=== PATIENT | male | born 1960 | race Caucasian/White ===

== ENCOUNTER 2020-04-10 10:22 | Inpatient (IN) | payer BC ==
[~2020-04-10] VITALS: Ht 190.5 cm; Wt 84.8 kg
[2020-04-10 11:41] LABS: BASOPHILS % (AUTO) 0.2 % (0-1); EOSINOPHILS # (AUTO) 0.7 X10'3 (0-0.9); EOSINOPHILS % (AUTO) 8.3 % (0-6); HEMATOCRIT 26.5 % (42.0-52.0); LYMPHOCYTES # (AUTO) 0.8 X10'3 (1.1-4.8); LYMPHOCYTES % (AUTO) 9.4 % (21-51); MEAN CORPUSCULAR HEMOGLOBIN 31.6 PG (27.0-31.0); MEAN CORPUSCULAR HGB CONC 34.1 g/dL (33.0-36.5); MEAN CORPUSCULAR VOLUME 92.8 FL (78-98); MEAN PLATELET VOLUME 7.3 FL (7.4-10.4); MONOCYTES # (AUTO) 1.1 X10'3 (0-0.9); MONOCYTES % (AUTO) 12.4 % (2-12); NEUTROPHILS # (AUTO) 5.9 X10'3 (1.8-7.7); NEUTROPHILS % (AUTO) 69.7 % (42-75); PLATELET COUNT 224 X10'3 (140-440); RED BLOOD COUNT 2.86 X10'6 (4.70-6.10); RED CELL DISTRIBUTION WIDTH 17.1 % (11.5-14.5); WHITE BLOOD COUNT 8.5 X10'3 (4.5-11.0)
[2020-04-10 11:57] LABS: ALANINE AMINOTRANSFERASE 46 U/L (12-78); ALBUMIN 2.4 G/DL (3.4-5.0); ALBUMIN/GLOBULIN RATIO 0.7 (1.1-1.5); ALKALINE PHOSPHATASE 197 IU/L (46-116); AMYLASE 114 U/L (25-115); ANION GAP 12 (8-16); ASPARTATE AMINO TRANSFERASE 39 U/L (10-37); BILIRUBIN,TOTAL 8.4 MG/DL (0.1-1.0); BLOOD UREA NITROGEN 28 MG/DL (7-18); BUN/CREATININE RATIO 21.4 (5.4-32.0); CALCIUM 8.6 MG/DL (8.5-10.1); CHLORIDE 98 MMOL/L (99-107); CREATININE 1.31 MG/DL (0.60-1.10); GLUCOSE 110 MG/DL (70-104); LIPASE 467 U/L (73-393); POTASSIUM 4.9 MMOL/L (3.5-5.1); SODIUM 129 MMOL/L (135-145); TOTAL PROTEIN 5.8 G/DL (6.4-8.2); eGFR 56 ML/MIN
[2020-04-10] MEDS ORDERED: cefazolin/dext.iso 2gm/50ml 50 ML IV ONE (12:35)
[2020-04-10] MEDS ORDERED: gabapentin 400mg capsule PO ONE (12:35)
[2020-04-10 12:40] LABS: PARTIAL THROMBOPLASTIN TIME 30 SECONDS (22-32)
[2020-04-10] MEDS ORDERED: furosemide 40mg/4ml inj IV ONE (12:55)
[2020-04-10] MEDS ORDERED: lactulose 20gm/30ml cup PO ONE (12:55)
[2020-04-10] MEDS ORDERED: acetaminophen 325mg tablet PO PRN (13:40)
[2020-04-10] MEDS ORDERED: magnesium hydroxide 30ml (MOM) UD suspension PO PRN (13:40)
[2020-04-10] MEDS ORDERED: mag hydrox/Alum hydrox/simeth 30ml oral suspension PO PRN (13:40)
[2020-04-10] MEDS ORDERED: FURO-150 PO (14:08)
[2020-04-10] MEDS ORDERED: MONT10TA21 PO (14:08)
[2020-04-10] MEDS ORDERED: SPIR50TA5 PO (14:08)
[2020-04-10] MEDS ORDERED: ONDA4TAB6 PO (14:08)
[2020-04-10] MEDS ORDERED: FAMO40TA73 PO (14:08)
[2020-04-10] MEDS ORDERED: RIFA550T PO (14:08)
[2020-04-10] MEDS ORDERED: LACT10SO PO (14:08)
[2020-04-10] MEDS ORDERED: HYDR2TAB7 PO (14:08)
[2020-04-10] MEDS ORDERED: LEVO50TA PO (14:08)
[2020-04-10] MEDS ORDERED: ceFAZolin 2gm in dextrose, iso 50 ML IV ONE (14:45)
--- NOTE | 2020-04-10 15:15 | NUR ---
Patient in room ED 6. I have received report from Macy,fiberglass insulation installer and had the opportunity to ask questions and assume patient care.
[2020-04-10] MEDS ORDERED: non-formulary drug (Ondansetron Hcl (Zofran) 1 TAB) PO PRN (15:45)
[2020-04-10] MEDS ORDERED: ringers solution, lacted 1,000 ML IV ONE (16:19)
[2020-04-10 16:30] VITALS: BP 108/61
--- NOTE | 2020-04-10 16:37 | NUR ---
received pt into 307,oriented to surroundings
[2020-04-10 18:00] VITALS: BP 92/47
--- NOTE | 2020-04-10 18:15 | NUR ---
Problems reprioritized. Patient report given, questions answered & plan of care reviewed with evert schuster.
[2020-04-10] MEDS: spironolactone 50 MG tablet PO SCH (19:56)
[2020-04-10] MEDS: mupirocin 2% nasal ointment 1gm UD NS SCH (19:56)
[2020-04-10] MEDS: lactulose 20gm/30ml cup PO SCH (19:56)
[2020-04-10] MEDS: rifaximin 550mg tablet PO SCH (19:56)
[2020-04-10] MEDS: furosemide 20MG tablet PO SCH (19:56)
[2020-04-10 22:00] VITALS: BP 98/42
--- NOTE | 2020-04-10 22:52 | NUR ---
PAGER ID: [phone] MESSAGE: Rm [phone]: Nikki Stapleton Pt getting VATS procedure in the AM for recurrent pleural effusion. Hx of liver failure, requesting medication for insomnia. Connie X [phone]
[2020-04-11] VITALS (23 sets, daily range): BP systolic 104–134; BP diastolic 45–74
[2020-04-11] MEDS ORDERED: ceFAZolin 2gm in dextrose, iso 50 ML IV ONE (05:30)
[2020-04-11] MEDS ORDERED: gabapentin 400mg capsule PO ONE (05:30)
[2020-04-11] MEDS ORDERED: famotidine/PF 10 mg/ml inj IV ONE (06:00)
[2020-04-11 06:13] LABS: BASOPHILS # (AUTO) 0.1 X10'3 (0-0.2); EOSINOPHILS # (AUTO) 0.7 X10'3 (0-0.9); EOSINOPHILS % (AUTO) 9.5 % (0-6); HEMATOCRIT 22.1 % (42.0-52.0); HEMOGLOBIN 7.6 g/dl (14.0-17.9); LYMPHOCYTES # (AUTO) 0.9 X10'3 (1.1-4.8); MEAN CORPUSCULAR HEMOGLOBIN 31.3 PG (27.0-31.0); MEAN CORPUSCULAR HGB CONC 34.3 g/dL (33.0-36.5); MEAN CORPUSCULAR VOLUME 91.1 FL (78-98); MEAN PLATELET VOLUME 7.1 FL (7.4-10.4); MONOCYTES # (AUTO) 0.7 X10'3 (0-0.9); MONOCYTES % (AUTO) 9.3 % (2-12); NEUTROPHILS # (AUTO) 5.1 X10'3 (1.8-7.7); NEUTROPHILS % (AUTO) 68.2 % (42-75); PLATELET COUNT 167 X10'3 (140-440); RED BLOOD COUNT 2.43 X10'6 (4.70-6.10); RED CELL DISTRIBUTION WIDTH 16.4 % (11.5-14.5); WHITE BLOOD COUNT 7.4 X10'3 (4.5-11.0)
[2020-04-11 06:25] LABS: ALANINE AMINOTRANSFERASE 38 U/L (12-78); ALBUMIN 2.1 G/DL (3.4-5.0); ALKALINE PHOSPHATASE 134 IU/L (46-116); ANION GAP 11 (8-16); ASPARTATE AMINO TRANSFERASE 34 U/L (10-37); BILIRUBIN,TOTAL 8.3 MG/DL (0.1-1.0); BLOOD UREA NITROGEN 29 MG/DL (7-18); BUN/CREATININE RATIO 23.2 (5.4-32.0); CALCIUM 8.7 MG/DL (8.5-10.1); CHLORIDE 100 MMOL/L (99-107); CREATININE 1.25 MG/DL (0.60-1.10); GLUCOSE 82 MG/DL (70-104); POTASSIUM 4.6 MMOL/L (3.5-5.1); SODIUM 132 MMOL/L (135-145); TOTAL CARBON DIOXIDE 21.1 MMOL/L (24-32); eGFR 59 ML/MIN
[2020-04-11 06:31] LABS: ALBUMIN/GLOBULIN RATIO 0.7 (1.1-1.5); TOTAL PROTEIN 5.1 G/DL (6.4-8.2)
--- NOTE | 2020-04-11 06:43 | NUR ---
Problems reprioritized. Patient report given, questions answered & plan of care reviewed with Pat RN.
[2020-04-11] MEDS ORDERED: BUPIVAcaine/PF 2.5 mg/ml (0.25%) 30ml vial ONE (07:01)
[2020-04-11] MEDS ORDERED: sterile Talc 3 GM powder vial (for IntraPleural Use ONLY) IPL ONE (07:05)
[2020-04-11] MEDS ORDERED: labetalol 20mg/4ml (5mg/ml) syringe IV PRN (07:10)
[2020-04-11] MEDS ORDERED: proCHLORperazine 10 MG/2 ml inj IV PRN (07:10)
[2020-04-11] MEDS ORDERED: ondansetron/PF 4mg/2ml inj IV PRN (07:10)
[2020-04-11] MEDS ORDERED: morphine 4 MG/ML inj SYRINge IV PRN (07:10)
[2020-04-11] MEDS ORDERED: morphine 2 MG/ML inj. syringe IV PRN (07:10)
[2020-04-11] MEDS ORDERED: hydrALAZINE 20mg/ml inj. IV PRN (07:10)
[2020-04-11] MEDS ORDERED: ringers solution, lacted 1,000 ML IV SCH (07:10)
[2020-04-11] MEDS ORDERED: meperidine/PF 25mg/ml syringe IV PRN ×2 (07:10)
[2020-04-11] MEDS ORDERED: sevoflurane 250ml liquid IH ONE (07:16)
[2020-04-11] MEDS ORDERED: midazolam 2 mg/2 ml injection ONE (07:21)
--- NOTE | 2020-04-11 07:24 | NUR ---
PATIENT TRANSFERRED, VIA BED, TO OR. SURGICAL SITE MARKED BY DR. GENIE HALL AM. Addendum: 04/11/20 at 0726 by Traci Damian RN Amended: Links added.
[2020-04-11] MEDS ORDERED: LIDOcaine 2% (20mg/ml) 5ml vial ONE (07:57)
[2020-04-11] MEDS ORDERED: rocuronium 10mg/ml inj IV ONE (07:57)
[2020-04-11] MEDS ORDERED: propofol inj 20 ML IV ONE (07:57)
[2020-04-11] MEDS ORDERED: fentaNYL /PF 50mcg/ml 5ml ampule ONE (07:57)
[2020-04-11] MEDS ORDERED: ePHEDrine 50MG/ML INJ. ONE (07:57)
[2020-04-11] MEDS: famotidine 20mg tablet PO SCH (08:00)
[2020-04-11] MEDS: spironolactone 50 MG tablet PO SCH ×2 (08:00→20:27)
[2020-04-11] MEDS: montelukast 10mg tablet PO SCH (08:00)
[2020-04-11] MEDS: lactulose 20gm/30ml cup PO SCH ×2 (08:00→17:03)
[2020-04-11] MEDS: enoxaparin 40mg/0.4ml syringe SUBCUT SCH (08:00)
[2020-04-11] MEDS: levoTHYROXINE 25mcg tablet PO SCH (08:00)
[2020-04-11] MEDS: furosemide 20MG tablet PO SCH ×2 (08:00→20:27)
[2020-04-11] MEDS: rifaximin 550mg tablet PO SCH ×2 (08:00→20:28)
[2020-04-11] MEDS: mupirocin 2% nasal ointment 1gm UD NS SCH ×2 (08:00→20:29)
[2020-04-11] MEDS ORDERED: dexamethasone sod phosphate 4mg/ml inj. ONE (08:13)
[2020-04-11] MEDS ORDERED: ondansetron/PF 4mg/2ml inj ONE (08:13)
[2020-04-11] MEDS ORDERED: neostigmine methylsulfate 1 MG/ML 10ml vial ONE (08:21)
[2020-04-11] MEDS ORDERED: glycopyrrolate 0.2mg/ml inj ONE (08:21)
[2020-04-11] MEDS ORDERED: albumin (Human) 5% 250ml 250 ML IV ONE ×2 (08:23)
[2020-04-11] MEDS ORDERED: metoclopramide 5 mg/ml inj IV PRN (08:25)
[2020-04-11] MEDS: meperidine/PF 25mg/ml syringe IV PRN ×3 (08:34→08:59)
--- NOTE | 2020-04-11 08:34 | NUR ---
RECEIVED FROM OR VIA BED ACCOMPANIED BY ANESTHESIOLOGIST DR CARROLL, REPORT GIVEN. PT ASLEEP AND MOANING IN PAIN, DEMEROL 25 MG GIVEN. 18 GAUGE PIV R FA PATENT AND RUNNING LR AT 100 ML/HR. 20 GAUGE ART LINE RIGHT WRIST INTACT. 4X4 DRESSING R LAT CHEST WITH SCANT SS DRAINAGE, CHEST TUBE X1 TO PLEURIVAC TO LOW CONTINUOUS SUCTION. F/C DRAINING CLEAR MATEUSZ FLUID. SKIN PINK AND WARM, CAP REFILL BRISK, ABD SOFT, VSS, PPULSES PRESENT, SCDS ON.
--- NOTE | 2020-04-11 09:37 | NUR ---
Patient in room MED 307. I have received report from TANNER Mendoza and had the opportunity to ask questions and assume patient care. Problems reprioritized. Patient report given, questions answered & plan of care reviewed with TANNER Riojas.
--- NOTE | 2020-04-11 09:54 | NUR ---
TRANSPORTED VIA BED ACCOMPANIED BY MYSELF, REPORT GIVEN. PT DROWSY BUT AROUSES AND IS RESTING COMFORTABLY. 18 GAUGE PIV R FA PATENT AND RUNNING LR AT 100 ML/HR. 20 GAUGE ART LINE RIGHT WRIST DC/D CATH TIP INTACT.. 4X4 DRESSING R LAT CHEST WITH SS DRAINAGE, CHEST TUBE X1 TO PLEURIVAC TO LOW CONTINUOUS SUCTION. F/C DRAINING CLEAR MATEUSZ FLUID. SKIN PINK AND WARM, CAP REFILL BRISK, ABD SOFT, VSS, PPULSES PRESENT, SCDS ON. LEFT IN CARE OF ACCE NURSE.
[2020-04-11 10:25] LABS: BASOPHILS # (AUTO) 0.1 X10'3 (0-0.2); BASOPHILS % (AUTO) 1.1 % (0-1); EOSINOPHILS # (AUTO) 0.6 X10'3 (0-0.9); HEMATOCRIT 25.5 % (42.0-52.0); HEMOGLOBIN 8.5 g/dl (14.0-17.9); LYMPHOCYTES # (AUTO) 0.4 X10'3 (1.1-4.8); LYMPHOCYTES % (AUTO) 5.3 % (21-51); MEAN CORPUSCULAR HEMOGLOBIN 30.5 PG (27.0-31.0); MEAN CORPUSCULAR HGB CONC 33.3 g/dL (33.0-36.5); MEAN CORPUSCULAR VOLUME 91.6 FL (78-98); MEAN PLATELET VOLUME 7.5 FL (7.4-10.4); MONOCYTES # (AUTO) 0.3 X10'3 (0-0.9); MONOCYTES % (AUTO) 3.6 % (2-12); NEUTROPHILS # (AUTO) 6.8 X10'3 (1.8-7.7); PLATELET COUNT 191 X10'3 (140-440); RED BLOOD COUNT 2.78 X10'6 (4.70-6.10); RED CELL DISTRIBUTION WIDTH 16.5 % (11.5-14.5); WHITE BLOOD COUNT 8.2 X10'3 (4.5-11.0)
[2020-04-11 10:35] LABS: ALBUMIN 2.5 G/DL (3.4-5.0); ANION GAP 10 (8-16); BLOOD UREA NITROGEN 28 MG/DL (7-18); BUN/CREATININE RATIO 22.4 (5.4-32.0); CALCIUM 8.7 MG/DL (8.5-10.1); CHLORIDE 101 MMOL/L (99-107); CREATININE 1.25 MG/DL (0.60-1.10); GLUCOSE 105 MG/DL (70-104); SODIUM 131 MMOL/L (135-145); TOTAL CARBON DIOXIDE 20.4 MMOL/L (24-32); eGFR 59 ML/MIN
[2020-04-11 10:36] LABS: POTASSIUM 4.4 MMOL/L (3.5-5.1)
--- NOTE | 2020-04-11 11:00 | NUR ---
PATIENT'S CHEST TUBE OUT PUT TOTAL 400ML IN LAST HOUR. GEOVANI MENSAH PHONED AND APPRISED OF CHEST TUBE OUTPUT AND DRAINAGE AT CHEST TUBE SITE. GEOVANI INTO ASSESS PATIENT AT THIS TIME REMOVED SATURATED DRESSING; PLACED PETROLEUM GAUZE DRESSING AT CT SITE AND 4X4 DRESSINGS . PATIENT TOLERATED WELL. Addendum: 04/11/20 at 2006 by Traci Damian RN Amended: Links added.
[2020-04-11] MEDS: HYDROcodone/acetaminophen 10/325mg tab PO PRN (16:35)
[2020-04-11] MEDS: ceFAZolin/D5W- 1GM premix 50 ML IV SCH (17:03)
--- NOTE | 2020-04-11 18:00 | NUR ---
Patient in room MED 307. I have received report from Beulah RN and had the opportunity to ask questions and assume patient care.
[2020-04-11] MEDS: docusate sod 100mg capsule PO SCH (20:27)
[2020-04-11] MEDS: gabapentin 300mg capsule PO SCH (20:28)
[2020-04-12] MEDS: ceFAZolin/D5W- 1GM premix 50 ML IV SCH (00:14)
[2020-04-12 02:00] VITALS: BP 113/52
[2020-04-12] MEDS: HYDROcodone/acetaminophen 10/325mg tab PO PRN ×3 (04:39→19:33)
[2020-04-12 05:58] LABS: ALANINE AMINOTRANSFERASE 40 U/L (12-78); ALBUMIN 2.4 G/DL (3.4-5.0); ALBUMIN/GLOBULIN RATIO 0.7 (1.1-1.5); ALKALINE PHOSPHATASE 123 IU/L (46-116); ANION GAP 12 (8-16); ASPARTATE AMINO TRANSFERASE 35 U/L (10-37); BLOOD UREA NITROGEN 38 MG/DL (7-18); BUN/CREATININE RATIO 24.2 (5.4-32.0); CALCIUM 9.4 MG/DL (8.5-10.1); CHLORIDE 96 MMOL/L (99-107); CREATININE 1.57 MG/DL (0.60-1.10); GLUCOSE 147 MG/DL (70-104); POTASSIUM 5.2 MMOL/L (3.5-5.1); SODIUM 126 MMOL/L (135-145); TOTAL CARBON DIOXIDE 17.7 MMOL/L (24-32); TOTAL PROTEIN 5.7 G/DL (6.4-8.2); eGFR 46 ML/MIN
[2020-04-12 06:00] VITALS: BP 115/56
--- NOTE | 2020-04-12 06:00 | NUR ---
Patient in room MED 307. I have received report from Danika RN & Guanaco RN and had the opportunity to ask questions and assume patient care.
[2020-04-12 06:02] LABS: BASOPHILS % (AUTO) 0.2 % (0-1); EOSINOPHILS % (AUTO) 0 % (0-6); HEMATOCRIT 26.3 % (42.0-52.0); HEMOGLOBIN 8.7 g/dl (14.0-17.9); LYMPHOCYTES # (AUTO) 0.5 X10'3 (1.1-4.8); LYMPHOCYTES % (AUTO) 2.7 % (21-51); MEAN CORPUSCULAR HEMOGLOBIN 30.8 PG (27.0-31.0); MEAN CORPUSCULAR HGB CONC 32.9 g/dL (33.0-36.5); MEAN CORPUSCULAR VOLUME 93.8 FL (78-98); MEAN PLATELET VOLUME 7.7 FL (7.4-10.4); MONOCYTES # (AUTO) 0.6 X10'3 (0-0.9); MONOCYTES % (AUTO) 3.2 % (2-12); NEUTROPHILS # (AUTO) 16.9 X10'3 (1.8-7.7); NEUTROPHILS % (AUTO) 93.9 % (42-75); PLATELET COUNT 205 X10'3 (140-440); RED BLOOD COUNT 2.81 X10'6 (4.70-6.10); RED CELL DISTRIBUTION WIDTH 16.5 % (11.5-14.5)
--- NOTE | 2020-04-12 06:17 | NUR ---
Orientee documentation: I have reviewed and agree with all interventions, assessments performed and documented by Danika HART .
--- NOTE | 2020-04-12 06:17 | NUR ---
Problems reprioritized. Patient report given, questions answered & plan of care reviewed with Shweta HART. .
[2020-04-12] MEDS: enoxaparin 40mg/0.4ml syringe SUBCUT SCH (08:00)
[2020-04-12] MEDS: lactulose 20gm/30ml cup PO SCH ×2 (08:26→19:30)
[2020-04-12] MEDS: spironolactone 50 MG tablet PO SCH ×2 (08:26→19:29)
[2020-04-12] MEDS: famotidine 20mg tablet PO SCH (08:26)
[2020-04-12] MEDS: docusate sod 100mg capsule PO SCH ×2 (08:27→19:30)
[2020-04-12] MEDS: rifaximin 550mg tablet PO SCH ×2 (08:27→19:30)
[2020-04-12] MEDS: levoTHYROXINE 25mcg tablet PO SCH (08:27)
[2020-04-12] MEDS: mupirocin 2% nasal ointment 1gm UD NS SCH (08:27)
[2020-04-12] MEDS: furosemide 20MG tablet PO SCH ×2 (08:27→19:29)
[2020-04-12] MEDS: montelukast 10mg tablet PO SCH (08:27)
[2020-04-12] MEDS: gabapentin 300mg capsule PO SCH ×2 (08:27→19:30)
[2020-04-12 10:00] VITALS: BP 120/53
[2020-04-12] MEDS ORDERED: lactulose 20gm/30ml cup PO ONE (11:00)
[2020-04-12 14:00] VITALS: BP 121/58
--- NOTE | 2020-04-12 16:30 | NUR ---
Discontinued Higuera catheter at 1200. No urine output at this time. Encouraging voiding Q1H. Patient does not feel urge or need to void. Encouraging intake of PO fluids. No bladder distention noted. Will continue to monitor and bladder scan if needed.
[2020-04-12 18:00] VITALS: BP 115/52
--- NOTE | 2020-04-12 18:00 | NUR ---
Patient in room MED 307. I have received report from KALIN HART and had the opportunity to ask questions and assume patient care.
--- NOTE | 2020-04-12 18:00 | NUR ---
Problems reprioritized. Patient report given, questions answered & plan of care reviewed with TANNER Garnica & TANNER Rosales.
--- NOTE | 2020-04-12 20:00 | NUR ---
Patient had not voided since 1199. sn bladder scanned patient at 1999, showing 107 ml of urine. pt c/o of no discomfort. will continue to monitor
[2020-04-12 22:00] VITALS: BP 116/41
[2020-04-13 02:00] VITALS: BP 103/49
[2020-04-13] MEDS: HYDROcodone/acetaminophen 10/325mg tab PO PRN ×2 (03:19→20:27)
--- NOTE | 2020-04-13 04:26 | NUR ---
0230 Bladder scan showed 427 ml of urine, straight cath performed and 310 cc of urine removed.
--- NOTE | 2020-04-13 04:59 | NUR ---
0500 bladder scanner showed 190 cc of urine, pt is in no discomfort, offered non invasive measures of urination. will continue to monitor.
[2020-04-13 06:00] VITALS: BP 116/44
[2020-04-13 06:03] LABS: BASOPHILS % (AUTO) 0.1 % (0-1); EOSINOPHILS % (AUTO) 0 % (0-6); HEMATOCRIT 24.9 % (42.0-52.0); HEMOGLOBIN 8.4 g/dl (14.0-17.9); LYMPHOCYTES # (AUTO) 0.6 X10'3 (1.1-4.8); LYMPHOCYTES % (AUTO) 2.5 % (21-51); MEAN CORPUSCULAR HEMOGLOBIN 30.4 PG (27.0-31.0); MEAN CORPUSCULAR HGB CONC 33.6 g/dL (33.0-36.5); MEAN CORPUSCULAR VOLUME 90.4 FL (78-98); MEAN PLATELET VOLUME 7.4 FL (7.4-10.4); MONOCYTES # (AUTO) 1.9 X10'3 (0-0.9); MONOCYTES % (AUTO) 8.2 % (2-12); NEUTROPHILS # (AUTO) 20.3 X10'3 (1.8-7.7); NEUTROPHILS % (AUTO) 89.2 % (42-75); PLATELET COUNT 233 X10'3 (140-440); RED BLOOD COUNT 2.76 X10'6 (4.70-6.10); RED CELL DISTRIBUTION WIDTH 16.4 % (11.5-14.5); WHITE BLOOD COUNT 22.7 X10'3 (4.5-11.0)
[2020-04-13 06:10] LABS: ALANINE AMINOTRANSFERASE 40 U/L (12-78); ALBUMIN 2.4 G/DL (3.4-5.0); ALKALINE PHOSPHATASE 163 IU/L (46-116); ANION GAP 8 (8-16); ASPARTATE AMINO TRANSFERASE 42 U/L (10-37); BILIRUBIN,TOTAL 6.9 MG/DL (0.1-1.0); BLOOD UREA NITROGEN 56 MG/DL (7-18); BUN/CREATININE RATIO 28.6 (5.4-32.0); CHLORIDE 89 MMOL/L (99-107); CREATININE 1.96 MG/DL (0.60-1.10); GLUCOSE 104 MG/DL (70-104); TOTAL CARBON DIOXIDE 21.9 MMOL/L (24-32); eGFR 35 ML/MIN
--- NOTE | 2020-04-13 06:13 | NUR ---
Problems reprioritized. Patient report given, questions answered & plan of care reviewed with Jonathan HART.
--- NOTE | 2020-04-13 06:15 | NUR ---
Patient in room MED 307. I have received report from TANNER Rosales and had the opportunity to ask questions and assume patient care.
[2020-04-13 06:20] LABS: TOTAL PROTEIN 5.4 G/DL (6.4-8.2)
[2020-04-13 06:21] LABS: POTASSIUM 6.2 MMOL/L (3.5-5.1); SODIUM 119 MMOL/L (135-145)
[2020-04-13 06:23] LABS: ALBUMIN/GLOBULIN RATIO 0.8 (1.1-1.5)
--- NOTE | 2020-04-13 06:29 | NUR ---
PAGER ID: [phone] MESSAGE: [phone] Sedrick Lai: Na (119) and K (6.2). TANNER Castillo Ext [phone]
--- NOTE | 2020-04-13 07:05 | NUR ---
PAGER ID: [phone] MESSAGE: [phone] Sedrick Lai: Na (119) and K (6.2). TANNER Castillo Ext [phone]
[2020-04-13] MEDS: spironolactone 50 MG tablet PO SCH (07:30)
[2020-04-13] MEDS: furosemide 20MG tablet PO SCH ×2 (07:31→20:00)
--- NOTE | 2020-04-13 07:32 | NUR ---
DR. SPENCER AT BEDSIDE: NEW ORDERS RECEIVED - D/C ALDACTONE DUE TO HIGH POTASSIUM, HOLD LASIX DOSE THIS AM DUE TO LOW SODIUM. WILL CONTINUE TO MONITOR
[2020-04-13] MEDS: lactulose 20gm/30ml cup PO SCH ×2 (07:57→20:22)
[2020-04-13] MEDS: gabapentin 300mg capsule PO SCH (07:58)
[2020-04-13] MEDS: docusate sod 100mg capsule PO SCH ×2 (07:58→20:26)
[2020-04-13] MEDS: famotidine 20mg tablet PO SCH (07:59)
[2020-04-13] MEDS: montelukast 10mg tablet PO SCH (08:00)
[2020-04-13] MEDS ORDERED: dextrose 50%-water 50ml dispensing syringe IV ONE (08:00)
[2020-04-13] MEDS ORDERED: calcium gluconate inj. 1 GM in normal saline 50ml IV soln 40 ML IV ONE (08:00)
[2020-04-13] MEDS: levoTHYROXINE 25mcg tablet PO SCH (08:00)
[2020-04-13] MEDS ORDERED: insulin regular, human 10 units/0.1 ml syringe SQ ONE (08:00)
[2020-04-13] MEDS ORDERED: albuterol 2.5 MG/3 ML nebule NEB ONE (08:00)
[2020-04-13] MEDS: rifaximin 550mg tablet PO SCH ×2 (08:01→20:26)
[2020-04-13] MEDS: enoxaparin 40mg/0.4ml syringe SUBCUT SCH (08:03)
[2020-04-13] MEDS: tamsulosin 0.4mg capsule PO SCH ×2 (09:21→20:25)
[2020-04-13 09:42] LABS: ALBUMIN 2.5 G/DL (3.4-5.0); ANION GAP 10 (8-16); BLOOD UREA NITROGEN 60 MG/DL (7-18); BUN/CREATININE RATIO 31.4 (5.4-32.0); CHLORIDE 89 MMOL/L (99-107); CREATININE 1.91 MG/DL (0.60-1.10); GLUCOSE 131 MG/DL (70-104); TOTAL CARBON DIOXIDE 20.2 MMOL/L (24-32); eGFR 36 ML/MIN
--- NOTE | 2020-04-13 09:52 | NUR ---
critical labs NA 119, K 6.2 - same results from AM labs @ 0300. repeat labs scheduled for 1400, will continue to monitor
[2020-04-13 09:53] LABS: POTASSIUM 6.2 MMOL/L (3.5-5.1); SODIUM 119 MMOL/L (135-145)
--- NOTE | 2020-04-13 10:35 | NUR ---
PATIENT TO NUC MED FOR CAROLINE Addendum: 04/13/20 at 1042 by Janessa Sainz RN WRONG PATIENT
[2020-04-13 11:00] VITALS: BP 113/45
--- NOTE | 2020-04-13 13:53 | NUR ---
Student documentation: I have reviewed and agree with all interventions, assessments performed and documented by Andressa Marshall.
--- NOTE | 2020-04-13 13:53 | NUR ---
Student Medication Administration: For this medication-pass time frame, all medication were reviewed, dispensed, administered and documented per hospital policy by Andressa Marshall.
[2020-04-13] MEDS: ondansetron/PF 4mg/2ml inj IV PRN (14:37)
[2020-04-13 14:50] LABS: ALBUMIN 2.5 G/DL (3.4-5.0); ANION GAP 10 (8-16); BLOOD UREA NITROGEN 65 MG/DL (7-18); BUN/CREATININE RATIO 28.9 (5.4-32.0); CALCIUM 9.1 MG/DL (8.5-10.1); CHLORIDE 88 MMOL/L (99-107); CREATININE 2.25 MG/DL (0.60-1.10); GLUCOSE 129 MG/DL (70-104); TOTAL CARBON DIOXIDE 20.3 MMOL/L (24-32); eGFR 30 ML/MIN
[2020-04-13 14:52] LABS: POTASSIUM 6.1 MMOL/L (3.5-5.1); SODIUM 118 MMOL/L (135-145)
--- NOTE | 2020-04-13 14:53 | NUR ---
critical results Dr. Carson paged: PAGER ID: [phone] MESSAGE: [phone]: [facility] - CRITICAL LABS. NA 118, K 6.1. nurse Madeline [phone]
--- NOTE | 2020-04-13 14:58 | NUR ---
DR. SPENCER @ BEDSIDE, AWARE OF CRITICAL RESULTS: NEW ORDER FOR KAYEXELATE
[2020-04-13 15:00] VITALS: BP 111/53
[2020-04-13] MEDS ORDERED: sodium polystyrene sulfonate 15gm/60ml oral suspension PO ONE (17:25)
[2020-04-13 18:00] VITALS: BP 108/44
--- NOTE | 2020-04-13 18:00 | NUR ---
Patient in room MED 307. I have received report from ZOIE HART and had the opportunity to ask questions and assume patient care.
--- NOTE | 2020-04-13 18:12 | NUR ---
Problems reprioritized. Patient report given, questions answered & plan of care reviewed with TANNER Vasquez.
[2020-04-13 22:00] VITALS: BP 103/40
--- NOTE | 2020-04-13 22:00 | NUR ---
Bladder scanned at 240 ml. sn will continue to monitor. pt denies any pain
[2020-04-13] MEDS ORDERED: albuterol 2.5 MG/3 ML nebule NEB PRN (23:30)
[2020-04-14 02:00] VITALS: BP 163/36
[2020-04-14] MEDS ORDERED: bisacodyl 10mg suppository rectal RC STA (02:50)
--- NOTE | 2020-04-14 03:00 | NUR ---
bladder scan showed 547 ml. patient complained of distended bladder. sn will continue to monitor
[2020-04-14] MEDS: HYDROcodone/acetaminophen 10/325mg tab PO PRN ×3 (03:10→20:37)
[2020-04-14] MEDS ORDERED: LIDOcaine 2% 10ml TOPICAL JELLY (Urojet) MM ONE (03:25)
[2020-04-14 06:00] VITALS: BP 100/30
--- NOTE | 2020-04-14 06:07 | NUR ---
Problems reprioritized. Patient report given, questions answered & plan of care reviewed with INGRID HART.
[2020-04-14 06:25] LABS: BASOPHILS % (AUTO) 0.3 % (0-1); EOSINOPHILS % (AUTO) 0.1 % (0-6); HEMATOCRIT 25.2 % (42.0-52.0); HEMOGLOBIN 8.3 g/dl (14.0-17.9); LYMPHOCYTES % (AUTO) 6.2 % (21-51); MEAN PLATELET VOLUME 7.3 FL (7.4-10.4); MONOCYTES # (AUTO) 1.4 X10'3 (0-0.9); MONOCYTES % (AUTO) 8.7 % (2-12); NEUTROPHILS # (AUTO) 14.2 X10'3 (1.8-7.7); NEUTROPHILS % (AUTO) 84.7 % (42-75); PLATELET COUNT 217 X10'3 (140-440); RED BLOOD COUNT 2.77 X10'6 (4.70-6.10); RED CELL DISTRIBUTION WIDTH 16.3 % (11.5-14.5); WHITE BLOOD COUNT 16.7 X10'3 (4.5-11.0)
[2020-04-14 06:32] LABS: ALANINE AMINOTRANSFERASE 40 U/L (12-78); ALBUMIN 2.4 G/DL (3.4-5.0); ALKALINE PHOSPHATASE 156 IU/L (46-116); ANION GAP 6 (8-16); ASPARTATE AMINO TRANSFERASE 47 U/L (10-37); BILIRUBIN,TOTAL 6.6 MG/DL (0.1-1.0); BLOOD UREA NITROGEN 73 MG/DL (7-18); BUN/CREATININE RATIO 33.2 (5.4-32.0); CALCIUM 8.9 MG/DL (8.5-10.1); CHLORIDE 89 MMOL/L (99-107); GLUCOSE 107 MG/DL (70-104); eGFR 31 ML/MIN
[2020-04-14 06:34] LABS: ALBUMIN/GLOBULIN RATIO 0.8 (1.1-1.5); TOTAL PROTEIN 5.5 G/DL (6.4-8.2)
--- NOTE | 2020-04-14 06:34 | NUR ---
Patient in room MED 307. I have received report from TANNER Bucio and had the opportunity to ask questions and assume patient care.
[2020-04-14 06:39] LABS: SODIUM 117 MMOL/L (135-145)
[2020-04-14 06:40] LABS: POTASSIUM 6.4 MMOL/L (3.5-5.1)
--- NOTE | 2020-04-14 06:43 | NUR ---
PAGER ID: [phone] MESSAGE: [phone]. pt. Sedrick Lai. labs came back Na 117, K+ 6.4. please advise. Janet [phone]
[2020-04-14] MEDS ORDERED: normal saline 500ml IV soln 1,000 ML IV ONE (07:30)
[2020-04-14] MEDS: furosemide 20MG tablet PO SCH ×2 (08:00→19:52)
[2020-04-14] MEDS: docusate sod 100mg capsule PO SCH ×2 (08:19→19:54)
[2020-04-14] MEDS: famotidine 20mg tablet PO SCH (08:19)
[2020-04-14] MEDS: rifaximin 550mg tablet PO SCH ×2 (08:19→19:55)
[2020-04-14] MEDS: montelukast 10mg tablet PO SCH (08:20)
[2020-04-14] MEDS: levoTHYROXINE 25mcg tablet PO SCH (08:20)
[2020-04-14] MEDS: lactulose 20gm/30ml cup PO SCH ×2 (08:20→19:52)
[2020-04-14] MEDS: enoxaparin 40mg/0.4ml syringe SUBCUT SCH (08:21)
[2020-04-14] MEDS: ondansetron/PF 4mg/2ml inj IV PRN (08:41)
[2020-04-14 10:06] LABS: ALBUMIN 2.3 G/DL (3.4-5.0); ANION GAP 6 (8-16); BLOOD UREA NITROGEN 76 MG/DL (7-18); BUN/CREATININE RATIO 34.9 (5.4-32.0); CALCIUM 8.5 MG/DL (8.5-10.1); CHLORIDE 89 MMOL/L (99-107); CREATININE 2.18 MG/DL (0.60-1.10); GLUCOSE 112 MG/DL (70-104); TOTAL CARBON DIOXIDE 22.5 MMOL/L (24-32); eGFR 31 ML/MIN
[2020-04-14 10:27] LABS: POTASSIUM 6.8 MMOL/L (3.5-5.1); SODIUM 117 MMOL/L (135-145)
--- NOTE | 2020-04-14 10:30 | NUR ---
PAGER ID: [phone] MESSAGE: [phone]. pt. Sedrick Lai. luke pt. K+ is at 6.8. Na 117. still waiting for PICC nurse for access. pt. hard stick. thank you. Janet [phone]
[2020-04-14] MEDS ORDERED: sodium polystyrene sulfonate 15gm/60ml oral suspension PO ONE ×2 (10:35→17:50)
[2020-04-14] MEDS ORDERED: calcium gluconate inj. 2 GM in normal saline 100ml IV soln 80 ML IV ONE (10:35)
[2020-04-14] MEDS ORDERED: dextrose 50%-water 50ml dispensing syringe IV ONE (10:35)
[2020-04-14] MEDS ORDERED: insulin regular, human U-100 3ml vial - multi-dose IV ONE (10:35)
[2020-04-14] MEDS ORDERED: albuterol 2.5 MG/3 ML nebule NEB ONE (10:35)
[2020-04-14 11:00] VITALS: BP 105/35
[2020-04-14] MEDS ORDERED: calcium gluconate inj. 2 GM in normal saline 100ml IV soln 100 ML IV ONE (11:25)
[2020-04-14 15:00] VITALS: BP 97/46
[2020-04-14 17:41] LABS: ALBUMIN 2.4 G/DL (3.4-5.0); ANION GAP 7 (8-16); BLOOD UREA NITROGEN 80 MG/DL (7-18); BUN/CREATININE RATIO 38.6 (5.4-32.0); CALCIUM 8.7 MG/DL (8.5-10.1); CHLORIDE 89 MMOL/L (99-107); CREATININE 2.07 MG/DL (0.60-1.10); GLUCOSE 110 MG/DL (70-104); TOTAL CARBON DIOXIDE 22.1 MMOL/L (24-32); eGFR 33 ML/MIN
[2020-04-14 17:44] LABS: POTASSIUM 6.1 MMOL/L (3.5-5.1); SODIUM 118 MMOL/L (135-145)
--- NOTE | 2020-04-14 17:45 | NUR ---
PAGER ID: [phone] MESSAGE: [id number]. pt. Sedrick Lai. Na is 118, K+ 6.1. thanks Janet [phone]
--- NOTE | 2020-04-14 18:13 | NUR ---
Problems reprioritized. Patient report given, questions answered & plan of care reviewed with TANNER Deutsch.
[2020-04-14 19:00] VITALS: BP 97/38
--- NOTE | 2020-04-14 20:20 | NUR ---
Called Dr. Lynn per patient c/t site leaking significantly at dressing site ~600ml on bed x2 today with 420ml out from 6am till now. ~1620 ml out with hypotension throughout the day. Dr. Lynn ordered to perform dressing change. Will perform drsg change and continue to monitor patient.
[2020-04-14] MEDS: tamsulosin 0.4mg capsule PO SCH (20:34)
[2020-04-14 23:00] VITALS: BP 100/51
[2020-04-15] MEDS: HYDROcodone/acetaminophen 10/325mg tab PO PRN ×4 (01:13→17:40)
--- NOTE | 2020-04-15 05:57 | NUR ---
Called Isael MENSAH and notified him about increased pt output "captured" in chest tube draining device for shift. Total @ 1090ml since 1800 04/14, MAP improved from previous shift. No new orders at this time.
[2020-04-15 06:00] VITALS: BP 99/45
--- NOTE | 2020-04-15 06:15 | NUR ---
Problems reprioritized. Patient report given, questions answered & plan of care reviewed with Farideh HART.
--- NOTE | 2020-04-15 06:24 | NUR ---
Patient in room PCU 3027. I have received report from TANNER Deutsch and had the opportunity to ask questions and assume patient care.
[2020-04-15] MEDS: montelukast 10mg tablet PO SCH (07:26)
[2020-04-15] MEDS: rifaximin 550mg tablet PO SCH ×2 (07:26→20:33)
[2020-04-15] MEDS: furosemide 20MG tablet PO SCH (07:26)
[2020-04-15] MEDS: levoTHYROXINE 25mcg tablet PO SCH (07:26)
[2020-04-15] MEDS: famotidine 20mg tablet PO SCH (07:26)
[2020-04-15] MEDS: docusate sod 100mg capsule PO SCH ×2 (07:26→20:33)
[2020-04-15] MEDS: lactulose 20gm/30ml cup PO SCH ×3 (07:26→08:00)
[2020-04-15 07:30] LABS: BASOPHILS % (AUTO) 0.4 % (0-1); EOSINOPHILS # (AUTO) 0.2 X10'3 (0-0.9); EOSINOPHILS % (AUTO) 1.2 % (0-6); HEMATOCRIT 23.1 % (42.0-52.0); HEMOGLOBIN 7.7 g/dl (14.0-17.9); LYMPHOCYTES # (AUTO) 0.7 X10'3 (1.1-4.8); LYMPHOCYTES % (AUTO) 5.5 % (21-51); MEAN CORPUSCULAR HEMOGLOBIN 30.3 PG (27.0-31.0); MEAN CORPUSCULAR HGB CONC 33.5 g/dL (33.0-36.5); MEAN CORPUSCULAR VOLUME 90.5 FL (78-98); MEAN PLATELET VOLUME 7.3 FL (7.4-10.4); MONOCYTES % (AUTO) 7.9 % (2-12); PLATELET COUNT 206 X10'3 (140-440); RED BLOOD COUNT 2.55 X10'6 (4.70-6.10); RED CELL DISTRIBUTION WIDTH 16.3 % (11.5-14.5); WHITE BLOOD COUNT 12.9 X10'3 (4.5-11.0)
[2020-04-15] MEDS: enoxaparin 40mg/0.4ml syringe SUBCUT SCH (07:45)
[2020-04-15 08:08] LABS: ALANINE AMINOTRANSFERASE 48 U/L (12-78); ALBUMIN 2.2 G/DL (3.4-5.0); ALKALINE PHOSPHATASE 168 IU/L (46-116); ANION GAP 7 (8-16); ASPARTATE AMINO TRANSFERASE 49 U/L (10-37); BILIRUBIN,TOTAL 6.4 MG/DL (0.1-1.0); BLOOD UREA NITROGEN 83 MG/DL (7-18); BUN/CREATININE RATIO 45.1 (5.4-32.0); CALCIUM 8.4 MG/DL (8.5-10.1); CHLORIDE 86 MMOL/L (99-107); CREATININE 1.84 MG/DL (0.60-1.10); GLUCOSE 92 MG/DL (70-104); TOTAL CARBON DIOXIDE 24.3 MMOL/L (24-32); eGFR 38 ML/MIN
[2020-04-15 08:09] LABS: ALBUMIN/GLOBULIN RATIO 0.8 (1.1-1.5)
[2020-04-15 08:15] LABS: SODIUM 117 MMOL/L (135-145)
--- NOTE | 2020-04-15 08:21 | NUR ---
PAGER ID: [phone] MESSAGE: Re: Sedrick Lai. [id number]. Critical lab values; K+ 6.0, NA 117. Thanks. Farideh Chavez [phone]
[2020-04-15 09:09] LABS: ALBUMIN 2.2 G/DL (3.4-5.0); ANION GAP 4 (8-16); BLOOD UREA NITROGEN 84 MG/DL (7-18); BUN/CREATININE RATIO 46.9 (5.4-32.0); CALCIUM 8.5 MG/DL (8.5-10.1); CHLORIDE 87 MMOL/L (99-107); CREATININE 1.79 MG/DL (0.60-1.10); GLUCOSE 99 MG/DL (70-104); TOTAL CARBON DIOXIDE 24.2 MMOL/L (24-32); eGFR 39 ML/MIN
[2020-04-15] MEDS: ondansetron/PF 4mg/2ml inj IV PRN (09:09)
[2020-04-15 09:11] LABS: POTASSIUM 6.2 MMOL/L (3.5-5.1); SODIUM 115 MMOL/L (135-145)
[2020-04-15 10:42] LABS: CLARITY,URINE CLEAR (Clear); COLOR,URINE YELLOW (Yellow); GLUCOSE, URINE NEGATIVE (Neg); KETONES,URINE NEGATIVE (Neg); LEUKOCYTE ESTERASE ,URINE NEGATIVE (Neg); NITRITES, URINE NEGATIVE (Neg); OCCULT BLOOD,URINE SMALL (Neg); PH,URINE 5.5 (4.8-8.0); PROTEIN,URINE NEGATIVE (Neg); UROBILINOGEN,URINE 0.2 E.U/dL (0.2-1.0)
[2020-04-15 10:52] LABS: UA COLLECTION TYPE URINAL
[2020-04-15 10:53] LABS: BACTERIA,URINE NONE SEEN /HPF (Neg); MUCUS STRANDS NONE SEEN /LPF (Neg); OSMOLALITY UA 470 MOSM/K (50-1400); RBC,URINE 0-2 /HPF (0-2); SQUAMOUS EPITHELIAL CELL,UR NONE SEEN /LPF (FEW); WBC,URINE 0-4 /HPF (0-4)
[2020-04-15 11:00] VITALS: BP 100/45
[2020-04-15 11:06] LABS: SODIUM,URINE RANDOM < 15 MEQ/L
[2020-04-15 11:19] LABS: UA EOSINOPHILS NO EOS /HPF
--- NOTE | 2020-04-15 14:02 | NUR ---
Initial: Pt admit for further evaluation and pleurodesis with recurrent pleural effusion and hx ESLD with elevated NH3 on admit (WNL on 04/12). Pt now s/p pleurodesis and chest tube placement, documented with 1430 mL output 04/14 per I&O. Patient's serum Na down to 115 and K up to 6.2, Lasix was discontinued and pt received NS 04/14. Irrigation Equipment Remover to be consulted for electrolyte abnormalities per physician notes. 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 A scaled weight was obtained and pt with an appropriate BMI, though wt may fluctuate d/t changes in fluid status. Pt on a regular diet documented with 75-100% PO intake throughout LOS meeting nutrient needs. LBM 04/14, receiving routine Lactulose. No nutrition intervention implemented at this time. Will continue to follow and make recommendations as appropriate. Recommendations: 1) Continue regular diet 2) Monitor need for additional protein 3) Scaled weights per rx Addendum: 04/15/20 at [address] Amended: Links added.
[2020-04-15 15:00] VITALS: BP 114/31
[2020-04-15] MEDS ORDERED: sodium chloride 3% IV.soln 100 ML IV ONE (16:00)
[2020-04-15 18:00] VITALS: BP 103/48
--- NOTE | 2020-04-15 18:25 | NUR ---
Patient in room PCU 3027. I have received report from Farideh HART and had the opportunity to ask questions and assume patient care.
--- NOTE | 2020-04-15 18:29 | NUR ---
Problems reprioritized. Patient report given, questions answered & plan of care reviewed with TANNER Olsen.
--- NOTE | 2020-04-15 18:55 | NUR ---
Critical high Na 117, August informed. 1 liter NS ordered.
[2020-04-15 19:38] LABS: OSMOLALITY UA 474 MOSM/K (50-1400)
[2020-04-15 20:00] LABS: SODIUM,URINE RANDOM < 15 MEQ/L
[2020-04-15] MEDS ORDERED: normal saline 1000ml 1,000 ML IVB ONE ×2 (20:16→23:32)
[2020-04-15] MEDS: tamsulosin 0.4mg capsule PO SCH (20:33)
--- NOTE | 2020-04-15 21:30 | NUR ---
Critical high Na 116, August notified.
[2020-04-15 22:00] VITALS: BP 117/34
[2020-04-15 23:21] LABS: SODIUM,URINE RANDOM < 15 MEQ/L
[2020-04-15 23:23] LABS: OSMOLALITY UA 495 MOSM/K (50-1400)
--- NOTE | 2020-04-15 23:29 | NUR ---
critical high NA 118August notified. Following with Dr. Castañeda Addendum: 04/16/20 at 0132 by Pretty Sherwood RN critical low
[2020-04-16] VITALS (9 sets, daily range): BP systolic 96–113; BP diastolic 40–58
[2020-04-16 01:15] LABS: BASOPHILS % (AUTO) 0.2 % (0-1); EOSINOPHILS # (AUTO) 0.4 X10'3 (0-0.9); EOSINOPHILS % (AUTO) 3.6 % (0-6); LYMPHOCYTES # (AUTO) 0.5 X10'3 (1.1-4.8); LYMPHOCYTES % (AUTO) 4.4 % (21-51); MEAN CORPUSCULAR HEMOGLOBIN 31.5 PG (27.0-31.0); MEAN CORPUSCULAR HGB CONC 34.7 g/dL (33.0-36.5); MEAN CORPUSCULAR VOLUME 90.9 FL (78-98); MEAN PLATELET VOLUME 7.2 FL (7.4-10.4); MONOCYTES # (AUTO) 1.3 X10'3 (0-0.9); MONOCYTES % (AUTO) 12.6 % (2-12); NEUTROPHILS # (AUTO) 8.4 X10'3 (1.8-7.7); NEUTROPHILS % (AUTO) 79.2 % (42-75); PLATELET COUNT 197 X10'3 (140-440); RED CELL DISTRIBUTION WIDTH 16.5 % (11.5-14.5); WHITE BLOOD COUNT 10.6 X10'3 (4.5-11.0)
[2020-04-16 01:22] LABS: HEMATOCRIT 19.9 % (42.0-52.0); HEMOGLOBIN 6.9 g/dl (14.0-17.9); SODIUM,URINE RANDOM < 15 MEQ/L
[2020-04-16 01:24] LABS: ALANINE AMINOTRANSFERASE 37 U/L (12-78); ALBUMIN/GLOBULIN RATIO 0.8 (1.1-1.5); ALKALINE PHOSPHATASE 155 IU/L (46-116); ANION GAP 4 (8-16); ASPARTATE AMINO TRANSFERASE 39 U/L (10-37); BILIRUBIN,TOTAL 5.3 MG/DL (0.1-1.0); BLOOD UREA NITROGEN 79 MG/DL (7-18); BUN/CREATININE RATIO 47.3 (5.4-32.0); CALCIUM 7.5 MG/DL (8.5-10.1); CHLORIDE 90 MMOL/L (99-107); CREATININE 1.67 MG/DL (0.60-1.10); GLUCOSE 101 MG/DL (70-104); MAGNESIUM 2.5 MG/DL (1.5-2.4); PHOSPHORUS 4.1 MG/DL (2.3-4.5); POTASSIUM 4.6 MMOL/L (3.5-5.1); TOTAL CARBON DIOXIDE 25.5 MMOL/L (24-32); TOTAL PROTEIN 4.4 G/DL (6.4-8.2); eGFR 42 ML/MIN
[2020-04-16 01:27] LABS: SODIUM 119 MMOL/L (135-145)
--- NOTE | 2020-04-16 01:32 | NUR ---
Critical low, Na 119, HGB 6.9, HCT 19.9. August notified, Doctor Garry following.
[2020-04-16] MEDS: ondansetron/PF 4mg/2ml inj IV PRN ×3 (01:41→16:35)
[2020-04-16 01:43] LABS: OSMOLALITY UA 500 MOSM/K (50-1400)
--- NOTE | 2020-04-16 02:34 | NUR ---
Hospitalist informed of critical values. MESSAGE: Re: Sedrick Lai rm [id number]. Patient is being followed by Sharlene Castañeda critical value of 119 after Normal Saline 1000ml/hr x2 was given. Pts HGB 6.9 hct 19.9, would you like an AM redraw or plan to transfuse? Thanks, Bridgett #[phone]
[2020-04-16] MEDS: HYDROcodone/acetaminophen 10/325mg tab PO PRN (04:51)
--- NOTE | 2020-04-16 06:20 | NUR ---
Problems reprioritized. Patient report given, questions answered & plan of care reviewed with Gabi HART.
--- NOTE | 2020-04-16 06:22 | NUR ---
Patient in room PCU 3027. I have received report from Pretty HART and had the opportunity to ask questions and assume patient care.
[2020-04-16] MEDS ORDERED: normal saline 1000ml 1,000 ML IV SCH (07:00)
[2020-04-16] MEDS: docusate sod 100mg capsule PO SCH ×2 (07:38→20:00)
[2020-04-16] MEDS: montelukast 10mg tablet PO SCH (07:38)
[2020-04-16] MEDS: rifaximin 550mg tablet PO SCH ×2 (07:38→20:48)
[2020-04-16] MEDS: levoTHYROXINE 25mcg tablet PO SCH (07:38)
[2020-04-16] MEDS: enoxaparin 40mg/0.4ml syringe SUBCUT SCH (08:00)
[2020-04-16] MEDS: lactulose 20gm/30ml cup PO SCH ×2 (08:44→20:49)
[2020-04-16] MEDS: famotidine 20mg tablet PO SCH (08:44)
--- NOTE | 2020-04-16 09:22 | NUR ---
PAGER ID: [phone] MESSAGE: [id number] Sedrick Lai, discussion held with patient, he wants to be a DNR. Please discuss with patient when you round. Gabi HART [phone]
[2020-04-16 10:46] LABS: OSMOLALITY UA 535 MOSM/K (50-1400)
[2020-04-16 10:52] LABS: SODIUM,URINE RANDOM < 15 MEQ/L
[2020-04-16] MEDS: proCHLORperazine 10 MG/2 ml inj IV PRN ×2 (13:13→19:24)
[2020-04-16 13:34] LABS: HEMOGLOBIN 8.4 g/dl (14.0-17.9); PLATELET COUNT 210 X10'3 (140-440); WHITE BLOOD COUNT 10.7 X10'3 (4.5-11.0)
[2020-04-16 13:36] LABS: BASOPHILS # (AUTO) 0.1 X10'3 (0-0.2); BASOPHILS % (AUTO) 0.8 % (0-1); EOSINOPHILS # (AUTO) 0.4 X10'3 (0-0.9); EOSINOPHILS % (AUTO) 3.3 % (0-6); HEMATOCRIT 24.6 % (42.0-52.0); LYMPHOCYTES # (AUTO) 0.7 X10'3 (1.1-4.8); LYMPHOCYTES % (AUTO) 6.8 % (21-51); MEAN CORPUSCULAR HEMOGLOBIN 30.2 PG (27.0-31.0); MEAN CORPUSCULAR VOLUME 88.7 FL (78-98); MEAN PLATELET VOLUME 7.2 FL (7.4-10.4); MONOCYTES % (AUTO) 9.6 % (2-12); NEUTROPHILS # (AUTO) 8.5 X10'3 (1.8-7.7); NEUTROPHILS % (AUTO) 79.5 % (42-75); RED BLOOD COUNT 2.78 X10'6 (4.70-6.10); RED CELL DISTRIBUTION WIDTH 17.4 % (11.5-14.5)
[2020-04-16 13:43] LABS: ALBUMIN 2.1 G/DL (3.4-5.0); ANION GAP 5 (8-16); BLOOD UREA NITROGEN 77 MG/DL (7-18); BUN/CREATININE RATIO 50.3 (5.4-32.0); CALCIUM 7.9 MG/DL (8.5-10.1); CHLORIDE 90 MMOL/L (99-107); CREATININE 1.53 MG/DL (0.60-1.10); GLUCOSE 115 MG/DL (70-104); POTASSIUM 4.5 MMOL/L (3.5-5.1); TOTAL CARBON DIOXIDE 24.7 MMOL/L (24-32); eGFR 47 ML/MIN
[2020-04-16 13:47] LABS: SODIUM 120 MMOL/L (135-145)
--- NOTE | 2020-04-16 13:54 | NUR ---
PAGER ID: [phone] MESSAGE: [id number] Sedrick Lai, NA is 120 which is improvement from prior value. Gabi HART [phone]
--- NOTE | 2020-04-16 15:35 | NUR ---
PAGER ID: [phone] MESSAGE: [id number] Sedrick Lai, requesting something for acid reflux? Gabi HART [phone]
--- NOTE | 2020-04-16 18:33 | NUR ---
Problems reprioritized. Patient report given, questions answered & plan of care reviewed with Bing HART.
--- NOTE | 2020-04-16 18:42 | NUR ---
Patient in room PCU 3027. I have received report from TANNER Ashley and had the opportunity to ask questions and assume patient care.
--- NOTE | 2020-04-16 20:31 | NUR ---
chest tube site dressing was saturated. removed and replaced xeroform , abd pad, and foam tape. pt coughed and serous fluid came out. no trouble breathing noted. pt still complains of nausea
[2020-04-16] MEDS: tamsulosin 0.4mg capsule PO SCH (20:48)
[2020-04-17 02:00] VITALS: BP 97/38
--- NOTE | 2020-04-17 02:10 | NUR ---
changed dressing again, was totally saturated and saturated bedding also. pt cleaned, new gown and linens. xeroform gauze 4x4 and 2 abds applied with foam tape to secure
[2020-04-17] MEDS: proCHLORperazine 10 MG/2 ml inj IV PRN (03:03)
[2020-04-17 05:11] LABS: EOSINOPHILS # (AUTO) 0.4 X10'3 (0-0.9); HEMATOCRIT 24.1 % (42.0-52.0); HEMOGLOBIN 8.2 g/dl (14.0-17.9); LYMPHOCYTES # (AUTO) 0.4 X10'3 (1.1-4.8); RED BLOOD COUNT 2.72 X10'6 (4.70-6.10)
[2020-04-17 05:13] LABS: BASOPHILS % (AUTO) 0.3 % (0-1); LYMPHOCYTES % (AUTO) 4.8 % (21-51); MEAN CORPUSCULAR HEMOGLOBIN 30.2 PG (27.0-31.0); MEAN CORPUSCULAR HGB CONC 34.1 g/dL (33.0-36.5); MEAN CORPUSCULAR VOLUME 88.6 FL (78-98); MONOCYTES # (AUTO) 1.3 X10'3 (0-0.9); MONOCYTES % (AUTO) 14.5 % (2-12); NEUTROPHILS % (AUTO) 76.4 % (42-75); PLATELET COUNT 159 X10'3 (140-440); RED CELL DISTRIBUTION WIDTH 17.6 % (11.5-14.5); WHITE BLOOD COUNT 9.1 X10'3 (4.5-11.0)
[2020-04-17 05:24] LABS: ALANINE AMINOTRANSFERASE 46 U/L (12-78); ALBUMIN 2.1 G/DL (3.4-5.0); ALKALINE PHOSPHATASE 148 IU/L (46-116); ANION GAP 6 (8-16); ASPARTATE AMINO TRANSFERASE 53 U/L (10-37); BILIRUBIN,TOTAL 7.7 MG/DL (0.1-1.0); BLOOD UREA NITROGEN 70 MG/DL (7-18); BUN/CREATININE RATIO 50.4 (5.4-32.0); CALCIUM 8.1 MG/DL (8.5-10.1); CHLORIDE 91 MMOL/L (99-107); CREATININE 1.39 MG/DL (0.60-1.10); GLUCOSE 104 MG/DL (70-104); MAGNESIUM 2.7 MG/DL (1.5-2.4); POTASSIUM 4.1 MMOL/L (3.5-5.1); SODIUM 121 MMOL/L (135-145); TOTAL CARBON DIOXIDE 23.6 MMOL/L (24-32); eGFR 52 ML/MIN
[2020-04-17 05:27] LABS: ALBUMIN/GLOBULIN RATIO 0.8 (1.1-1.5); TOTAL PROTEIN 4.7 G/DL (6.4-8.2)
--- NOTE | 2020-04-17 05:38 | NUR ---
pt asking about leaving. he doesn't feel like he is getting better. encouraged him to wait and speak with MDs today
[2020-04-17 05:55] LABS: ANISOCYTOSIS 1+; PLATELET ESTIMATE NORMAL; TOTAL CELLS COUNTED 100
[2020-04-17 05:56] LABS: BURR CELLS 2+; POLYCHROMASIA FEW; SCHISTOCYTES FEW
--- NOTE | 2020-04-17 06:21 | NUR ---
Problems reprioritized. Patient report given, questions answered & plan of care reviewed with TANNER Ashley.
--- NOTE | 2020-04-17 06:32 | NUR ---
Problems reprioritized. Patient report given, questions answered & plan of care reviewed with Gabi HART.
--- NOTE | 2020-04-17 06:32 | NUR ---
Student documentation: I have reviewed and agree with all interventions, assessments performed and documented by Desiree REYES. Student Medication Administration: For this medication-pass time frame, all medication were reviewed, dispensed, administered and documented per hospital policy by Desiree Reyes with Bing HART.
[2020-04-17 07:00] VITALS: BP 101/53
--- NOTE | 2020-04-17 07:06 | NUR ---
Patient in room PCU 3027. I have received report from Bing HART and had the opportunity to ask questions and assume patient care.
[2020-04-17] MEDS: lactulose 20gm/30ml cup PO SCH ×2 (07:15→20:11)
[2020-04-17] MEDS: levoTHYROXINE 25mcg tablet PO SCH (07:16)
[2020-04-17] MEDS: famotidine 10mg tablet PO SCH (07:16)
[2020-04-17] MEDS: enoxaparin 40mg/0.4ml syringe SUBCUT SCH (07:16)
[2020-04-17] MEDS: montelukast 10mg tablet PO SCH (07:16)
[2020-04-17] MEDS: docusate sod 100mg capsule PO SCH ×2 (07:17→20:13)
[2020-04-17] MEDS: rifaximin 550mg tablet PO SCH ×2 (07:17→20:12)
[2020-04-17] MEDS: ondansetron/PF 4mg/2ml inj IV PRN (08:18)
[2020-04-17] MEDS: HYDROcodone/acetaminophen 10/325mg tab PO PRN (08:34)
--- NOTE | 2020-04-17 09:22 | NUR ---
MD at bedside, Pt. stated he does not want any more treatment. After discussion, it was determined the patient will be comfort care.
[2020-04-17] MEDS ORDERED: hyoscyamine 0.125mg TAB.SUBL SL PRN (09:30)
[2020-04-17] MEDS ORDERED: LORazepam 0.5 MG tablet PO PRN (09:30)
[2020-04-17] MEDS ORDERED: LORazepam 1 MG tablet PO PRN (09:30)
--- NOTE | 2020-04-17 10:20 | NUR ---
Asked patient if he would like to see a water treatment plant operator and he declined. Pt. was happy about removal of fluid restriction. Offers no other complaints at this time. Warm blanket and juice provided. Repositioning for comfort.
[2020-04-17] MEDS: morphine 10mg/0.5ml (conc. morphine) oral syringe PO PRN ×3 (11:02→22:19)
--- NOTE | 2020-04-17 15:45 | NUR ---
Deflated 3 ml of air, at 1600: Reassessment shows slight bleeding at site. Pt. stated it happened right as he coughed. Reinflated 1 ml per order. No other symptoms noted.
--- NOTE | 2020-04-17 17:39 | NUR ---
After administration of Morphine, patient has been resting comfortably and offers no complaints. Chest tube site dressing has been saturated multiple times and reposition, dressing changes completed throughout shift. Patient thanked nursing for the care provided today.
--- NOTE | 2020-04-17 17:39 | NUR ---
file clerk data entry error above, wrong patient.
[2020-04-17 18:00] VITALS: BP 98/46
--- NOTE | 2020-04-17 18:24 | NUR ---
Problems reprioritized. Patient report given, questions answered & plan of care reviewed with Bing HART. Pt. is resting comfortably. linens, dressing to right side and gown changed at 1700.
--- NOTE | 2020-04-17 18:33 | NUR ---
Patient in room PCU 3027. I have received report from Gabi HART and had the opportunity to ask questions and assume patient care.
--- NOTE | 2020-04-17 18:33 | NUR ---
Patient in room PCU 3027. I have received report from TANNER Ashley and had the opportunity to ask questions and assume patient care.
[2020-04-17] MEDS: furosemide 20MG tablet PO SCH (20:13)
--- NOTE | 2020-04-17 22:29 | NUR ---
alfredo line broke near insertion point. had to replace alfredo. pt tolerated well. pt refused to have chest dressing changed but did allow gown and driflows to be changed. iv site oozing blood but he refuses new one. pain meds given. pt thankful.
[2020-04-18] MEDS: morphine 10mg/0.5ml (conc. morphine) oral syringe PO PRN ×4 (01:16→12:47)
--- NOTE | 2020-04-18 03:58 | NUR ---
Student documentation: I have reviewed and agree with all interventions, assessments performed and documented by Desiree VICENTE.Student Medication Administration: For this medication-pass time frame, all medication were reviewed, dispensed, administered and documented per hospital policy by Desiree VICENTE.
[2020-04-18 06:00] VITALS: BP 90/38
--- NOTE | 2020-04-18 06:18 | NUR ---
pt rested through the night. pain meds given when needed. He refused to let RN change chest dressing. rested in position of comfort, refused turns
--- NOTE | 2020-04-18 06:44 | NUR ---
Patient in room PCU 3027. I have received report from TANNER Smart and had the opportunity to ask questions and assume patient care. Patient awake at this time, offers no complaints, asks for door to be closed, will continue to monitor.
[2020-04-18] MEDS: lactulose 20gm/30ml cup PO SCH (08:00)
[2020-04-18] MEDS: docusate sod 100mg capsule PO SCH (08:03)
[2020-04-18] MEDS: furosemide 20MG tablet PO SCH (08:03)
[2020-04-18] MEDS: montelukast 10mg tablet PO SCH (08:03)
[2020-04-18] MEDS: levoTHYROXINE 25mcg tablet PO SCH (08:03)
[2020-04-18] MEDS: famotidine 10mg tablet PO SCH (08:03)
[2020-04-18 08:04] VITALS: BP_SYST 90
[2020-04-18] MEDS: rifaximin 550mg tablet PO SCH (08:04)
[2020-04-18] MEDS ORDERED: spironolactone 25 MG tablet PO SCH (08:30)
[2020-04-18] MEDS ORDERED: MORP100S12 PO (13:44)
[2020-04-18] MEDS ORDERED: Lorazepam PO (13:44)
[2020-04-18] MEDS ORDERED: HYOS0.1277 SL (13:44)
--- NOTE | 2020-04-18 15:46 | NUR ---
Patient discharged home on hospice at 1546. Patient reviewed packet before signing and case management has spoke to hospice and has set everything up for patient. PIV were removed and tele was d/c'd, belongings sent home with patient, except patient could not find wallet, patient was wheeled down by staff, and left with friend in private vehicle.
== END 2020-04-18 15:46 | disposition hospice, inpatient (51) | DRG 166 ==
LOC: ER 10:24 → ED HOLD 13:40 → MED 3N 16:20 → PCU 3S 04-14 17:32
PROVIDERS: ADMIT Family Medicine; ATTEND Family Medicine
PROC: 3E0L4GC Introduction of Other Therapeutic Substance into Pleural Cavity, Percutaneous Endoscopic Approach (ICD-10-PCS; 2020-04-11)
PROC: 0W9940Z Drainage of Right Pleural Cavity with Drainage Device, Percutaneous Endoscopic Approach (ICD-10-PCS; principal; 2020-04-11 07:18)
PROC: 30233N1 Transfusion of Nonautologous Red Blood Cells into Peripheral Vein, Percutaneous Approach (ICD-10-PCS; 2020-04-16)
DX: J90 Pleural effusion, not elsewhere classified (principal); K76.7 Hepatorenal syndrome; E22.2 Syndrome of inappropriate secretion of antidiuretic hormone; N17.9 Acute kidney failure, unspecified; R18.8 Other ascites; D63.8 Anemia in other chronic diseases classified elsewhere; E03.9 Hypothyroidism, unspecified; E86.9 Volume depletion, unspecified; E87.5 Hyperkalemia; K72.90 Hepatic failure, unspecified without coma; K74.60 Unspecified cirrhosis of liver; N18.9 Chronic kidney disease, unspecified; Z51.5 Encounter for palliative care; R25.1 Tremor, unspecified; R33.9 Retention of urine, unspecified; Z76.82 Awaiting organ transplant status; Z88.2 Allergy status to sulfonamides; Z79.899 Other long term (current) drug therapy; Z79.82 Long term (current) use of aspirin
CPT/HCPCS: 99285; Z7506; Z7508; 36415; 36430; 71045; 71250; 74176; 80048; 80053; 81001; 82140; 82150; 82570; 82948; 83690; 83735; 83930; 83935; 84100; 84295; 84300; 84443; 84484; 85007; 85025; 85610; 85730; 86885; 86900; 86901; 86920; 87070; 87075; 87081; 87102; 87207; 93005; 94640; 94760; 97110; 97116; 97161; 97530; A4215; A4618; A6222; A6258; A6449; A7000; A7048; C1758; G0378; J0610; J0690; J0780; J1100; J1650; J1815; J1940; J2001; J2175; J2250; J2405; J2704; J2710; J3010; J3490; J7030; J7040; J7120; J7131; P9016; P9045